=== PATIENT | female | born 1985 | race Caucasian/White ===

== ENCOUNTER 2019-03-24 09:55 | Emergency (ER) | payer OTHER ==
[2019-03-24] MEDS ORDERED: ONDANSETRON 4 MG/2 ML VIAL IVPUSH ONE ×2 (10:02→13:32)
[2019-03-24] MEDS ORDERED: SODIUM CHLORIDE 1,000 ML IV STA (10:02)
[2019-03-24] MEDS ORDERED: ACETAMINOPHEN 1000 MG/100 ML VIAL (NON FORMULARY) IVPB ONE (10:17)
[2019-03-24 10:28] VITALS: BMI 26.2
[2019-03-24] MEDS ORDERED: ONDANSETRON 4 MG/2 ML VIAL ONE ×2 (10:36→13:32)
[2019-03-24] MEDS ORDERED: ACETAMINOPHEN INJECTION 100 ML IVPB ONE (10:36)
[2019-03-24 10:59] LABS: BASO % 0.4 % (0-2.0); EOS % 2.7 % (0-4.5); HEMATOCRIT 37.9 % (32.4-45.2); HEMOGLOBIN 12.9 GM/dL (10.7-15.3); LYMPH % 20.3 % (8-40); MCH 30.9 pg (25.7-33.7); MEAN PLT VOLUME 7.3 fl (7.5-11.1); MONO % 6.2 % (3.8-10.2); NEUT % 70.4 % (42.8-82.8); PLATELET COUNT 494 K/MM3 (134-434); RBC 4.17 M/mm3 (3.60-5.2); RDW 13.9 % (11.6-15.6)
--- NOTE | 2019-03-24 11:10 | PDOC ---
History of Present Illness - General Stated Complaint: VOMITING (8 WKS ) Time Seen by Provider: 03/24/19 10:01 History Source: Patient Exam Limitations: No Limitations - History of Present Illness Initial Comments: 03/24/19 11:41 33-year-old female presents to ED with complaints of nausea vomiting for the past few days now associated frontal headache and poor by mouth intake. Patient denies abdominal pain vaginal discharge or urinary complaints. Patient is currently 8 weeks . Patient has no other complaints at this time Timing/Duration: intermittent Severity: mild Associated Symptoms: reports: headaches, nausea/vomiting Past History - Travel Traveled outside of the country in the last 30 days: No Close contact w/someone who was outside of country & ill: No - Past Medical History Allergies/Adverse Reactions: Allergies Allergy/AdvReac Type Severity Reaction Status Date / Time aspirin Allergy Verified 03/24/19 10:24 diclofenac Allergy Verified 03/24/19 10:24 ibuprofen Allergy Verified 03/24/19 10:24 tramadol Allergy Verified 03/24/19 10:24 Home Medications: Ambulatory Orders Ondansetron HCl [Zofran] 4 mg PO TID PRN #12 tablet 03/24/19 COPD: No Other medical history: denies - Reproductive History Is Patient Now?: Yes (#): 4 Para: 2 Spontaneous : 1 - Suicide/Smoking/Psychosocial Hx Smoking History: Never smoked Information on smoking cessation initiated: No Hx Alcohol Use: No Drug/Substance Use Hx: No Patient Lives Alone: No Lives with/in: spouse/SO Review of Systems - Review of Systems Able to Perform ROS?: No Is the patient limited Slovenian proficient: No Constitutional: Yes: Loss of Appetite HEENTM: No: Symptoms Reported Respiratory: No: Symptoms reported Cardiac (ROS): No: Symptoms Reported ABD/GI: Yes: Nausea, Vomiting : No: Symptoms Reported Musculoskeletal: No: Symptoms Reported Integumentary: No: Symptoms Reported Neurological: Yes: Headache (temporal/frontal throbbing) Hematologic/Lymphatic: No: Symptoms Reported *Physical Exam - Vital Signs Last Vital Signs Temp Pulse Resp BP Pulse Ox 98.8 F 110 H 18 134/86 99 03/24/19 10:19 03/24/19 10:19 03/24/19 10:19 03/24/19 10:19 05/02/19 10:19 - Physical Exam General Appearance: Yes: Nourished, Appropriately Dressed. No: Apparent Distress HEENT: positive: EOMI, GUICHO, TMs Normal. negative: Pale Conjunctivae Neck: positive: Normal Thyroid, Supple Respiratory/Chest: positive: Lungs Clear, Normal Breath Sounds. negative: Respiratory Distress, Accessory Muscle Use Cardiovascular: positive: Regular Rhythm, Tachycardia. negative: Murmur Female Pelvic Exam: negative: vaginal bleeding Gastrointestinal/Abdominal: positive: Soft. negative: Tenderness Integumentary: positive: Normal Color, Warm, Moist Neurologic: positive: Motor Strength 5/5 (ambulatory) ED Treatment Course - LABORATORY CBC & Chemistry Diagram: 03/24/19 10:30 03/24/19 10:02 - Medications Given in the ED: ED Medications Discontinued Medications Generic Name Dose Route Start Last Admin Trade Name Freq PRN Reason Stop Dose Admin Acetaminophen 1,000 mg 03/24/19 10:17 03/24/19 10:44 Ofirmev Injection - IVPB 03/24/19 10:18 1,000 mg ONCE ONE Administration Sodium Chloride 1,000 mls @ 1,000 mls/hr 03/24/19 10:02 03/24/19 10:44 Normal Saline - IV 03/24/19 11:01 1,000 mls/hr ASDIR STA Administration Ondansetron HCl 4 mg 03/24/19 10:02 03/24/19 10:44 Zofran Injection IVPUSH 03/24/19 10:03 4 mg ONCE ONE Administration Medical Decision Making - Medical Decision Making 03/24/19 10:44 Complaint nausea and vomiting for the past 2 days now with frontal headache. Patient few weeks Exam. Patient had no abdominal tenderness or acute findings. Patient actively vomiting clear fluid upon my arrival Plan labs, urine antiemetics and IV fluids: 03/24/19 11:45 Laboratory Tests 03/24/19 03/24/19 03/24/19 10:02 10:25 10:30 WBC 10.0 Hgb 12.9 Hct 37.9 Plt Count 494 H MPV 7.3 L Neutrophils % 70.4 Lymphocytes % 20.3 Sodium 136 Potassium 4.0 Carbon Dioxide 24 Anion Gap 8 BUN 6 L Creatinine 0.5 L Random Glucose 81 Calcium 9.8 Magnesium 2.1 Total Bilirubin 0.3 AST 11 L ALT 20 Urine Ketones 2+ H Urine Blood 3+ H Urine Nitrite Negative Ur Leukocyte Esterase Trace Urine WBC (Auto) 3 Urine RBC (Auto) 64 Patient ordered for second liter of fluid but with D5N S patient states feeling better. Will po challenge shortly. Urine cx sent for evaluation 03/24/19 13:03 Patient requesting to go home. Patient tolerated water and 1 packet of saltine crackers Patient be discharged home with Zofran and told to follow-up with her [employer] INSTRUM[employer] INSPECTOR. 03/24/19 13:50 *DC/Admit/Observation/Transfer Diagnosis at time of Disposition: Hyperemesis gravidarum - Discharge Dispostion Disposition: HOME Condition at time of disposition: Improved - Prescriptions Prescriptions: Ondansetron HCl [Zofran] 4 mg PO TID PRN #12 tablet PRN Reason: Nausea And/Or Vomiting - Referrals - Patient Instructions Printed Discharge Instructions: DI for Hyperemesis Gravidarum Additional Instructions: Use Zofran as needed for nausea. Eat small frequent meals throughout the day. Please follow-up with your [facility] INSTRUM[employer] INSPECTOR and return to emergency room if your symptoms worsen. - Post Discharge Activity
[2019-03-24 11:27] LABS: ALBUMIN 3.9 g/dl (3.4-5.0); ALK PHOS 69 U/L (45-117); ANION GAP 8 MMOL/L (8-16); BILIRUBIN,TOTAL 0.3 mg/dL (0.2-1); BLOOD UREA NITROGEN 6 mg/dL (7-18); CALCIUM 9.8 mg/dL (8.5-10.1); CHLORIDE 105 mmol/L (98-107); CO2 24 mmol/L (21-32); CREATININE 0.5 mg/dL (0.55-1.3); GLUCOSE,RANDOM 81 mg/dL (74-106); LIPASE 113 U/L (73-393); MAGNESIUM 2.1 mg/dL (1.8-2.4); SGOT/AST 11 U/L (15-37); SGPT/ALT 20 U/L (13-61); SODIUM 136 mmol/L (136-145); TOT PROT 8.2 g/dl (6.4-8.2)
[2019-03-24 11:37] LABS: EPI CELLS 10.3 /HPF (0-5/HPF); PH,URINE 5.5 (5.0-8.0); URINE APPEARANCE CLOUDY; URINE BACTERIA 40.3 /hpf (NEGATIVE); URINE BILIRUBIN NEGATIVE (NEGATIVE); URINE CASTS 10 /lpf (0-8); URINE COLOR YELLOW; URINE GLUCOSE (UA) NEGATIVE (NEGATIVE); URINE KETONE 2+ (NEGATIVE); URINE LEUK ESTERASE TRACE (NEGATIVE); URINE NITRITE NEGATIVE (NEGATIVE); URINE PROTEIN NEGATIVE (NEGATIVE); URINE RBC 64 /hpf (0-4); URINE WBC 3 /hpf (0-5)
[2019-03-24] MEDS ORDERED: DEXTROSE 5%-NORMAL SALINE 1,000 ML IV ONE (11:41)
[2019-03-24 13:30] VITALS: BP 108/63; PULSE 72; TEMP 98.7
== END 2019-03-24 14:30 | disposition home or self-care (01) ==
LOC: JER 09:55
PROC: 3E0337Z Introduction of Electrolytic and Water Balance Substance into Peripheral Vein, Percutaneous Approach (ICD-10-PCS; principal; 2019-03-24)
PROC: 3E033GC Introduction of Other Therapeutic Substance into Peripheral Vein, Percutaneous Approach (ICD-10-PCS; 2019-03-24)
PROC: 3E033NZ Introduction of Analgesics, Hypnotics, Sedatives into Peripheral Vein, Percutaneous Approach (ICD-10-PCS; 2019-03-24)
DX: O26.891 Other specified pregnancy related conditions, first trimester (principal); O21.0 Mild hyperemesis gravidarum; R51 Headache; Z3A.08 8 weeks gestation of pregnancy
CPT/HCPCS: 36415; 80053; 81003; 83690; 83735; 85025; 87086; 99284-25; J0131; J7030

== ENCOUNTER 2019-04-22 04:27 | Emergency (ER) | payer OTHER ==
[2019-04-22] MEDS ORDERED: ONDANSETRON 4 MG/2 ML VIAL IVPUSH ONE ×2 (04:37→07:51)
--- NOTE | 2019-04-22 05:11 | PDOC ---
History of Present Illness - General Stated Complaint: 13 WEEKS ,VOMITING Time Seen by Provider: 04/22/19 04:37 - History of Present Illness Initial Comments: 04/22/19 05:08 CHIEF COMPLAINT: vomiting in HISTORY OF PRESENT ILLNESS: 33 yo 13 week F presents to ED with vomiting x 3 days. Patient is , reports that she was taking Reglan but ran out, and when she went to her OB MD Roberts he told her she should stop taking that because she was 12 weeks and he gave her Vitamin B6 instead , which is not helping. She denies any significant abdominal pain. PAST MEDICAL HISTORY: Denies past medical history FAMILY HISTORY: Denies SOCIAL HISTORY: Denies tobacco, alcohol, illicit drug use. SURGICAL HISTORY: Denies ALLERGIES: aspirin, diclofenac, ibuprofen, tramadol REVIEW OF SYSTEMS General/Constitutional: Denies fever or chills. Denies weakness. HEENT: Denies change in vision. Denies ear pain or discharge. Denies sore throat. Cardiovascular: Denies chest pain or shortness of breath. Respiratory: Denies cough, wheezing, or hemoptysis. Gastrointestinal: Persistent vomiting x 3 days. Denies diarrhea or constipation. Denies rectal bleeding. Genitourinary: Denies dysuria, frequency, or change in urination. Musculoskeletal: Denies joint or muscle swelling or pain. Denies neck or back pain. Skin and breasts: Denies rash or easy bruising. Neurologic: Denies headache, vertigo, loss of consciousness, or loss of sensation. PHYSICAL EXAM General Appearance: Well-appearing, appropriately dressed. No apparent distress , no intoxication. HEENT: EOMI, PERRLA, normal ENT inspection, normal voice, TMs normal, pharynx normal. No conjunctival pallor. No photophobia, scleral icterus. Neck: Supple. Trachea midline. No tenderness, rigidity, carotid bruit, stridor , lymphadenopathy, or thyromegaly. Respiratory/Chest: Lungs CTAB. No shortness of breath, chest tenderness, respiratory distress, accessory muscle use. No crackles, rales, rhonchi, stridor , wheezing, dullness Cardiovascular: RRR. S1, S2. No JVD, murmur, bradycardia, tachycardia. Vascular Pulses: Dorsalis-Pedis (R): 2+, Dorsalis-Pedis (L): 2+ Gastrointestinal/Abdominal: Mild lower abdominal tenderness. Normal bowel sounds. Abdomen soft, non-distended. No tenderness or rebound tenderness. No organomegaly, pulsatile mass, guarding, hernia, hepatomegaly, splenomegaly. Lymphatic: No adenopathy, tenderness. Musculoskeletal/Extremities: Normal inspection. FROM of all extremities, normal capillary refill. Pelvis Stable. No CVA tenderness. No tenderness to extremities, pedal edema, swelling, erythema or deformity. Integumentary: Appropriate color, dry, warm. No cyanosis, erythema, jaundice or rash Neurologic: net finisher II-XII intact. Fully oriented, alert. Appropriate mood/affect. Motor strength 5/5. No appreciable EOM palsy, facial droop or sensory deficit. Past History - Past Medical History Allergies/Adverse Reactions: Allergies Allergy/AdvReac Type Severity Reaction Status Date / Time aspirin Allergy Verified 04/22/19 04:56 diclofenac Allergy Verified 04/22/19 04:56 ibuprofen Allergy Verified 04/22/19 04:56 tramadol Allergy Verified 04/22/19 04:56 Home Medications: Ambulatory Orders Cephalexin [Keflex] 500 mg PO BID #20 capsule 04/22/19 Metoclopramide HCl [Reglan] 10 mg PO Q8H #15 tablet 04/22/19 COPD: No - Reproductive History (#): 4 Para: 2 Spontaneous : 1 - Suicide/Smoking/Psychosocial Hx Smoking History: Never smoked Hx Alcohol Use: No Drug/Substance Use Hx: No ED Treatment Course - LABORATORY CBC & Chemistry Diagram: 04/22/19 05:23 04/22/19 05:23 - RADIOLOGY Radiology Studies Ordered: Category Date Time Status TRANSVAGINAL US PREG [US] Stat Ultrasound 04/22/19 04:52 Ordered Medical Decision Making - Medical Decision Making 04/22/19 05:38 33 yo 13 week F presents to ED with vomiting x 3 days. -labs -zofran 04/22/19 06:13 Case discussed in detail with oncoming emergency provider including history, physical exam and ancillary studies. In brief, this patient is being seen in the ED for a chief complaint of: vomiting in I have completed the initial assessment interview note and have ordered the following labs: cbc, cmp, lipase, urine I have reviewed the following results: cbc, cmp, lipase Pending results: US, urine Plan for disposition as follows: pending US, urine Oncoming NPA Wolof has assumed care for the patient and will complete the evaluation and treatment. *DC/Admit/Observation/Transfer Diagnosis at time of Disposition: Hyperemesis gravidarum Urinary tract infection Qualifiers: Urinary tract infection type: acute cystitis Hematuria presence: without hematuria Qualified Code(s): N30.00 - Acute cystitis without hematuria - Discharge Dispostion Disposition: HOME Condition at time of disposition: Improved Decision to Admit order: No - Prescriptions Prescriptions: Cephalexin [Keflex] 500 mg PO BID #20 capsule Metoclopramide HCl [Reglan] 10 mg PO Q8H #15 tablet - Referrals Referrals: Rajiv Choi MD [Staff Physician] - - Patient Instructions Printed Discharge Instructions: Urinary Tract Infection, DI for Hyperemesis Gravidarum Additional Instructions: You were started on reglan for nausea and antibiotics for UTI. Take medications as directed and follow up with your OB on Thursday - Post Discharge Activity
[2019-04-22] MEDS ORDERED: ONDANSETRON 4 MG/2 ML VIAL ONE ×2 (05:12→07:59)
[2019-04-22 05:40] LABS: BASO % 0.3 % (0-2.0); EOS % 2.5 % (0-4.5); LYMPH % 24.5 % (8-40); MCH 31.2 pg (25.7-33.7); MCHC 34.2 g/dl (32.0-36.0); MEAN CELL VOLUME 91.2 fl (80-96); MEAN PLT VOLUME 6.9 fl (7.5-11.1); MONO % 6.7 % (3.8-10.2); PLATELET COUNT 557 K/MM3 (134-434); RBC 3.84 M/mm3 (3.60-5.2); RDW 14.1 % (11.6-15.6); WHITE BLOOD COUNT 10.5 K/mm3 (4.0-10.0)
[2019-04-22 06:07] LABS: ALBUMIN 3.5 g/dl (3.4-5.0); BILIRUBIN,TOTAL 0.3 mg/dL (0.2-1); CALCIUM 9.4 mg/dL (8.5-10.1); CREATININE 0.6 mg/dL (0.55-1.3); POTASSIUM 4.3 mmol/L (3.5-5.1); TOT PROT 7.4 g/dl (6.4-8.2)
[2019-04-22 06:07] LABS: EPI CELLS 25.5 /HPF (0-5/HPF); HYALINE CASTS 23 /lpf (0-8); URINE APPEARANCE TURBID; URINE BACTERIA 404.6 /hpf (NEGATIVE); URINE BILIRUBIN NEGATIVE (NEGATIVE); URINE COLOR YELLOW; URINE GLUCOSE (UA) NEGATIVE (NEGATIVE); URINE KETONE TRACE (NEGATIVE); URINE LEUK ESTERASE 1+ (NEGATIVE); URINE NITRITE NEGATIVE (NEGATIVE); URINE PROTEIN NEGATIVE (NEGATIVE); URINE RBC 34 /hpf (0-4); URINE WBC 15 /hpf (0-5)
[2019-04-22] MEDS ORDERED: SODIUM CHLORIDE 0.9% 500 ML INFUS.BAG IV ONE (06:07)
[2019-04-22] MEDS ORDERED: ACETAMINOPHEN 325 MG TABLET (FP) PO ONE (06:42)
[2019-04-22] MEDS ORDERED: ACETAMINOPHEN 325 MG TABLET (FP) ONE (06:45)
[2019-04-22] MEDS ORDERED: CEPHALEXIN MONOHYDRATE 500 MG CAPSULE (UD) PO ONE (06:48)
[2019-04-22 07:23] VITALS: TEMP 97.5; BMI 27.4
--- NOTE | 2019-04-22 07:35 | PDOC ---
*Physical Exam - Vital Signs Last Vital Signs Temp Pulse Resp BP Pulse Ox 97.5 F L 70 18 121/76 99 04/22/19 07:00 04/22/19 07:00 04/22/19 05:17 04/22/19 07:00 04/22/19 07:00 - Physical Exam General Appearance: Yes: Appropriately Dressed. No: Apparent Distress HEENT: positive: Normal Voice Neck: positive: Supple Respiratory/Chest: negative: Respiratory Distress Gastrointestinal/Abdominal: positive: Soft. negative: Tender Musculoskeletal: negative: CVA Tenderness Integumentary: positive: Dry, Warm Neurologic: positive: Fully Oriented, Alert, Normal Mood/Affect ED Treatment Course - LABORATORY CBC & Chemistry Diagram: 04/22/19 05:23 04/22/19 05:23 - ADDITIONAL ORDERS Additional order review: Laboratory Results 04/22/19 04/22/19 04/22/19 05:45 05:23 05:23 Sodium Potassium Chloride Carbon Dioxide Anion Gap BUN Creatinine Est GFR (CKD-EPI)AfAm Est GFR (CKD-EPI)NonAf Random Glucose Calcium Total Bilirubin AST ALT Alkaline Phosphatase Total Protein Albumin Lipase 88 Urine Color Yellow Urine Appearance Turbid Urine pH 7.0 D Ur Specific [place] 1.023 Urine Protein Negative Urine Glucose (UA) Negative Urine Ketones Trace H Urine Blood 2+ H Urine Nitrite Negative Urine Bilirubin Negative Urine Urobilinogen 1.0 Ur Leukocyte Esterase 1+ H Urine WBC (Auto) 15 Urine RBC (Auto) 34 Urine Casts (Auto) 23 U Epithel Cells (Auto) 25.5 Urine Bacteria (Auto) 404.6 Blood Type Cancelled Antibody Screen Cancelled 04/22/19 05:23 Sodium 139 Potassium 4.3 Chloride 108 H Carbon Dioxide 24 Anion Gap 7 L BUN 8 Creatinine 0.6 Est GFR (CKD-EPI)AfAm 136.87 Est GFR (CKD-EPI)NonAf 118.09 Random Glucose 81 Calcium 9.4 Total Bilirubin 0.3 AST 18 ALT 21 Alkaline Phosphatase 69 Total Protein 7.4 Albumin 3.5 Lipase Urine Color Urine Appearance Urine pH Ur Specific [place] Urine Protein Urine Glucose (UA) Urine Ketones Urine Blood Urine Nitrite Urine Bilirubin Urine Urobilinogen Ur Leukocyte Esterase Urine WBC (Auto) Urine RBC (Auto) Urine Casts (Auto) U Epithel Cells (Auto) Urine Bacteria (Auto) Blood Type Antibody Screen 04/22/19 05:23 RBC 3.84 MCV 91.2 MCHC 34.2 RDW 14.1 MPV 6.9 L Neutrophils % 66.0 Lymphocytes % 24.5 D Monocytes % 6.7 Eosinophils % 2.5 Basophils % 0.3 - Medications Given in the ED: ED Medications Discontinued Medications Generic Name Dose Route Start Last Admin Trade Name Praveen PRN Reason Stop Dose Admin Acetaminophen 650 mg 04/22/19 06:42 04/22/19 07:06 Tylenol - PO 04/22/19 06:43 650 mg ONCE ONE Administration Ondansetron HCl 4 mg 04/22/19 04:37 04/22/19 05:35 Zofran Injection IVPUSH 04/22/19 04:38 4 mg ONCE ONE Administration Sodium Chloride 1,000 ml 04/22/19 06:07 04/22/19 06:09 Normal Saline - IV 04/22/19 06:08 1,000 ml ONCE ONE Administration Medical Decision Making - Medical Decision Making 04/22/19 07:3 Pt signed out to me at 7 AM 33-year-old female currently 13 weeks with confirmed IUP on multiple ultrasounds per patient. Follows up with Dr. Roberts, here with hyperemesis gravidarum. Patient was on reglan but recently had meds discontinued by her OB. No abdominal pain, vaginal bleeding or dysuria at this time. Given zofran here, pending labs and reassessment. 04/22/19 07:38 Labs unremarkable. +UTI, will tx, ucx sent. On reassessment, patient reports feeling significantly better, po trial in progress. 04/22/19 08:46 04/22/19 08:46 Pt unable to noemi po despite multiple doses of zofran. Per discussion with ED attending, will give IV Reglan. Patient states she was taken off Reglan as was told by her QUARTER BACKER that as she was approaching her second trimester, nausea, vomiting should improve. Patient states she was also on B6 initially but that meds was not working for her. 04/22/19 09:46 Pt reports significant improvement in symptoms and was able to noemi po here. Will dc w/ reglan and have pt f/u with her OB Thursday *DC/Admit/Observation/Transfer Diagnosis at time of Disposition: Hyperemesis gravidarum Urinary tract infection Qualifiers: Urinary tract infection type: acute cystitis Hematuria presence: without hematuria Qualified Code(s): N30.00 - Acute cystitis without hematuria - Discharge Dispostion Disposition: HOME Condition at time of disposition: Improved - Prescriptions Prescriptions: Cephalexin [Keflex] 500 mg PO BID #20 capsule Metoclopramide HCl [Reglan] 10 mg PO Q8H #15 tablet - Referrals Referrals: Rajiv Choi MD [Staff Physician] - - Patient Instructions Printed Discharge Instructions: Urinary Tract Infection, DI for Hyperemesis Gravidarum Additional Instructions: You were started on reglan for nausea and antibiotics for UTI. Take medications as directed and follow up with your OB on Thursday - Post Discharge Activity
[2019-04-22] MEDS ORDERED: CEPHALEXIN MONOHYDRATE 250 MG CAPSULE (FP) ONE (07:43)
[2019-04-22] MEDS ORDERED: METOCLOPRAMIDE HCL INJECTION 10 MG/2 ML VIAL ONE (08:48)
[2019-04-22] MEDS ORDERED: SODIUM CHLORIDE 1,000 ML IV STA (08:48)
[2019-04-22] MEDS ORDERED: METOCLOPRAMIDE HCL INJECTION 10 MG/2 ML VIAL IVPB ONE (08:48)
[2019-04-22 10:23] VITALS: BP 121/78; PULSE 74
== END 2019-04-22 10:15 | disposition home or self-care (01) ==
LOC: JER 04:27
PROC: 3E0337Z Introduction of Electrolytic and Water Balance Substance into Peripheral Vein, Percutaneous Approach (ICD-10-PCS; principal; 2019-04-22)
PROC: 3E033GC Introduction of Other Therapeutic Substance into Peripheral Vein, Percutaneous Approach (ICD-10-PCS; 2019-04-22)
DX: O26.891 Other specified pregnancy related conditions, first trimester (principal); Z3A.13 13 weeks gestation of pregnancy; O21.0 Mild hyperemesis gravidarum; N30.00 Acute cystitis without hematuria
CPT/HCPCS: 36415; 80053; 81003; 83690; 85025; 87086; 96374; 96375; 96376; 99283-25; J7030

== ENCOUNTER 2019-05-09 10:23 | Emergency (ER) | payer OTHER ==
[2019-05-09 10:36] VITALS: TEMP 98.2; BMI 24.9
[2019-05-09] MEDS ORDERED: ACETAMINOPHEN 1000 MG/100 ML VIAL (NON FORMULARY) IVPB ONE (11:34)
[2019-05-09] MEDS ORDERED: SODIUM CHLORIDE 1,000 ML IV STA (11:34)
--- NOTE | 2019-05-09 11:43 | PDOC ---
*Physical Exam - Vital Signs Last Vital Signs Temp Pulse Resp BP Pulse Ox 98.2 F 74 18 117/75 100 05/09/19 10:32 05/09/19 10:32 05/09/19 10:32 05/09/19 10:32 05/09/19 10:32 Medical Decision Making - Medical Decision Making 05/09/19 11:43 33y F presents with abdominal pain at approx 16 weeks gestation presents with crampin gb/l lower abd pain without vaginal bleeding, fever/chlls, n/v, dysuria. pt in no acut distress abd soft nontender, no rebound/guarding suspect round ligament pain tylenol, and pmd fu The patient was seen and evaluated in conjunction with KHOA Molina under my direct supervision, ancillary studies were reviewed. I agree with the plan as outlined by KHOA Molina. *DC/Admit/Observation/Transfer - Discharge Dispostion Condition at time of disposition: Stable - Referrals Referrals: Nik Walsh [Primary Care Provider] - - Patient Instructions - Post Discharge Activity
[2019-05-09] MEDS ORDERED: ACETAMINOPHEN INJECTION 100 ML IVPB ONE (11:44)
[2019-05-09 12:21] LABS: BASO % 0.1 % (0-2.0); EOS % 1.3 % (0-4.5); HEMATOCRIT 34.1 % (32.4-45.2); HEMOGLOBIN 11.4 GM/dL (10.7-15.3); LYMPH % 19.5 % (8-40); MCH 30.7 pg (25.7-33.7); MCHC 33.5 g/dl (32.0-36.0); MEAN CELL VOLUME 91.6 fl (80-96); MEAN PLT VOLUME 7.5 fl (7.5-11.1); MONO % 6.2 % (3.8-10.2); NEUT % 72.9 % (42.8-82.8); RBC 3.72 M/mm3 (3.60-5.2); RDW 14.2 % (11.6-15.6); WHITE BLOOD COUNT 11.4 K/mm3 (4.0-10.0)
[2019-05-09 12:30] LABS: PLATELET COUNT 482 K/MM3 (134-434)
--- NOTE | 2019-05-09 12:32 | PDOC ---
History of Present Illness - General Chief Complaint: Pain, Acute Stated Complaint: ABD PAIN Time Seen by Provider: 05/09/19 11:32 History Source: Patient Exam Limitations: Clinical Condition - History of Present Illness Initial Comments: Patient @15wks with no significant past medical history with complaint of cramping lower abdominal pain which has been persistent for a few weeks now and worsened last day. Patient how multiple visit for same symptoms in the past month and reports taking Tylenol without improvement. Denies vaginal bleeding. Reported nausea and vomiting. Denies any other symptoms. Patient saw INTERNAL AUDIT SENIOR MANAGER over week ago for symptoms and was advised to take Tylenol for symptoms but pain has been persistent. Timing/Duration: other (2 days) Past History - Past Medical History Allergies/Adverse Reactions: Allergies Allergy/AdvReac Type Severity Reaction Status Date / Time aspirin Allergy Verified 04/22/19 04:56 diclofenac Allergy Verified 04/22/19 04:56 ibuprofen Allergy Verified 04/22/19 04:56 tramadol Allergy Verified 04/22/19 04:56 Home Medications: Ambulatory Orders NK [No Known Home Medication] 05/09/19 COPD: No - Reproductive History Is Patient Now?: Yes (#): 4 Para: 2 Spontaneous : 1 - Immunization History Immunization Up to Date: Yes - Suicide/Smoking/Psychosocial Hx Smoking History: Never smoked Have you smoked in the past 12 months: No Information on smoking cessation initiated: No Hx Alcohol Use: No Drug/Substance Use Hx: No Review of Systems - Review of Systems Able to Perform ROS?: Yes Is the patient limited Spanish proficient: No Constitutional: No: Fever, Malaise, Weakness HEENTM: No: Symptoms Reported Respiratory: No: Symptoms reported Cardiac (ROS): No: Symptoms Reported ABD/GI: Yes: Symptoms Reported, See HPI, Nausea, Vomiting, Abdominal cramping ( cramping intermittent lower abdominal pain). No: Abdominal Distended, Abd. Pain w/ defecation, Constipated, Diarrhea : Yes: See HPI. No: Symptoms Reported, Burning, Dysuria, Discharge, Frequency , Flank Pain, Hematuria, Incontinence, Pain, Urgency, Other (vaginal bleeding) Musculoskeletal: No: Back Pain All Other Systems: Reviewed and Negative *Physical Exam - Vital Signs Last Vital Signs Temp Pulse Resp BP Pulse Ox 98.2 F 74 18 117/75 100 05/09/19 10:32 05/09/19 10:32 05/09/19 10:32 05/09/19 10:32 05/09/19 10:32 - Physical Exam General Appearance: Yes: Nourished, Appropriately Dressed, Apparent Distress, Mild Distress HEENT: positive: Normal ENT Inspection Neck: positive: Supple Respiratory/Chest: positive: Lungs Clear, Normal Breath Sounds. negative: Respiratory Distress, Accessory Muscle Use Cardiovascular: positive: Regular Rhythm, Regular Rate Female Pelvic Exam: positive: normal adnexa Gastrointestinal/Abdominal: positive: Normal Bowel Sounds, Tender (mild TTP over b/l lower pelvic region), Flat. negative: Organomegaly, Distended, Guarding, Rebound, Mass Musculoskeletal: positive: Normal Inspection. negative: CVA Tenderness Extremity: positive: Normal Capillary Refill Integumentary: positive: Normal Color Neurologic: positive: Fully Oriented, Normal Response ED Treatment Course - LABORATORY CBC & Chemistry Diagram: 05/09/19 12:00 05/09/19 12:00 - Medications Given in the ED: ED Medications Discontinued Medications Generic Name Dose Route Start Last Admin Trade Name Praveen PRN Reason Stop Dose Admin Acetaminophen 1,000 mg 05/09/19 11:34 05/09/19 12:00 Ofirmev Injection - IVPB 05/09/19 11:35 1,000 mg ONCE ONE Administration Medical Decision Making - Medical Decision Making 05/09/19 12:32 Patient @15wks with no significant past medical history with complaint of cramping lower abdominal pain which has been persistent for a few weeks now and worsened last day. Patient how multiple visit for same symptoms in the past month and reports taking Tylenol without improvement. Denies vaginal bleeding. Reported nausea and vomiting. Denies any other symptoms. Patient saw INTERNAL AUDIT SENIOR MANAGER over week ago for symptoms and was advised to take Tylenol for symptoms but pain has been persistent. 05/09/19 13:02 Exam significant for mild b/l lower abdominal tenderness w/o rebound or guarding. Symptoms likely round ligament pain CBC,CMP, labs ordered. Tylenol 1g IV ordered for pain. IV hydration with NS ordered. abdominal U/S ordered. Reassess after labs and imaging 05/09/19 15:25 CBC and chemistry lab /o acute pathology. UA shows no acute findings. Pelvic U/ S shows live IUP of 15.2wks GA with pos FH. Patient feels better with IV tylenol as stable for discharge to take Tylenol prn for pain and warm compress to abdomen prn with OB f/u *DC/Admit/Observation/Transfer Diagnosis at time of Disposition: Abdominal pain during intrauterine , Pain of round ligament during - Discharge Dispostion Disposition: HOME Condition at time of disposition: Stable Decision to Admit order: No - Referrals Referrals: Nik Walsh [Primary Care Provider] - - Patient Instructions Printed Discharge Instructions: Common Discomforts and Bodily Changes During , Managing Symptoms of Additional Instructions: Your labs and ultrasound was normal. Your symptoms is likely from round ligament pain. Take Tylenol as needed for pain. Apply warm compress 2-3 times a day as needed for pain. Follow-up with your OB - Post Discharge Activity Forms/Work/School Notes: Back to Work
[2019-05-09 12:54] LABS: HYALINE CASTS 1 /lpf (0-8); URINE APPEARANCE CLEAR; URINE BACTERIA 93.1 /hpf (NEGATIVE); URINE BILIRUBIN NEGATIVE (NEGATIVE); URINE COLOR YELLOW; URINE GLUCOSE (UA) NEGATIVE (NEGATIVE); URINE KETONE NEGATIVE (NEGATIVE); URINE LEUK ESTERASE NEGATIVE (NEGATIVE); URINE NITRITE NEGATIVE (NEGATIVE); URINE PROTEIN NEGATIVE (NEGATIVE); URINE RBC 5 /hpf (0-4); URINE UROBILINOGEN 0.2 mg/dL (0.2-1.0); URINE WBC 1 /hpf (0-5)
[2019-05-09 13:07] LABS: ALBUMIN 3.5 g/dl (3.4-5.0); BILIRUBIN,TOTAL 0.2 mg/dL (0.2-1); BLOOD UREA NITROGEN 5.8 mg/dL (7-18); CALCIUM 9.5 mg/dL (8.5-10.1); CREATININE 0.5 mg/dL (0.55-1.3); TOT PROT 7.5 g/dl (6.4-8.2)
[2019-05-09 13:15] LABS: HCG,QUALITATIVE URINE Positive
[2019-05-09 15:31] VITALS: BP 112/69; PULSE 71
== END 2019-05-09 15:58 | disposition home or self-care (01) ==
LOC: JER 10:23
PROC: 3E033NZ Introduction of Analgesics, Hypnotics, Sedatives into Peripheral Vein, Percutaneous Approach (ICD-10-PCS; principal; 2019-05-09)
DX: O26.892 Other specified pregnancy related conditions, second trimester (principal); R10.30 Lower abdominal pain, unspecified; Z3A.15 15 weeks gestation of pregnancy
CPT/HCPCS: 36415; 76815-TC; 80053; 81003; 84702; 84703; 85025; 87086; 96374; 99283-25; J0131; J7030

== ENCOUNTER 2019-10-12 16:45 | Inpatient (IN) | payer OTHER ==
--- NOTE | 2019-10-12 18:12 | HP ---
Past Medical History - Primary Care Physician PCP:: Rajiv Choi - Admission Chief Complaint: Severe abdominal pain with regular contractions History Source: Patient Limitations to Obtaining History: No Limitations - Past Medical History SURFACE BOSS: No: Alzheimer's, CVA, Dementia, Migraine, Multiple Sclerosis, Peripheral Neuropathy, Parkinson's, Seizure, Syncope, TIA, Vertigo, Other Cardiovascular: No: AFIB, Aneurysm, Aortic Insufficiency, Aortic Stenosis, CAD, CHF, Deep Vein Thrombosis, HTN, Hyperlipdemia, CA, Mitral Insufficiency, Mitral Stenosis, Murmur, Pulmonary Hypertension, Other Pulmonary: No: Asthma, Bronchitis, Cancer, COPD, O2 Dependent, Pneumonia, Previously Intubated, Pulmonary Embolus, Pulmonary Fibrosis, Sleep Apnea, Other Gastrointestinal: No: Ascites, Cancer, Constipation, Crohn's Disease, Diverticulitis, Diverticulosis, Esophageal Varices, Gastritis, GERD, GI Bleed, Hemorrhoids, Hiatal Hernia, Inflamatory Bowel Disease, Irritable Bowel Disease, Pancreatitis, Peptic Ulcer Disease, Ulcerative Colitis, Other Hepatobiliary: No: Cirrhosis, Cholelithiasis, Cholecystitis, Choledocholithiasis , Hepatitis A, Hepatitis B, Hepatitis C, Other Renal/: No: Renal Failure, Renal Inusuff, BPH, Cancer, Hematuria, Hemodialysis , Neurogenic Bladder, Renal Calculi, UTI, Other Reproductive: No: Ectopic , Endometriosis, Fibroids, PID, Polycystic Ovary Syndrome, Postmenopausal, Other Heme/Onc: No: Anemia, B12 Deficiency, Bleeding Disorder, Cancer, Current Chemotherapy, Current Radiation Therapy, Hemochromatosis, Hypercoaguable State, Myeloproliferative Synd, Sickle Cell Disease, Sickle Cell Trait, Thrombocytopenia, Other Infectious Disease: No: AIDS, C-Diff, Herpes Zoster, HIV, MRSA, STD's, Tuberculosis, VREF, Other Psych: No: Addictions, Anxiety, Bipolar, Depression, Panic, Psychosis, Schizophrenia, Other Musculoskeletal: No: Bursitis, Chronic low back pain, Hemiparesis, Hemiplegia, Osteoarthritis, Paraplegia, Other Rheumatology: No: Fibromyalgia, Gout, Lupus, Rheumatoid Arthritis, Sarcoidosis, Vasculitis, Other ENT: No: Allergic Rhinitis, Sinusitis, Other Endocrine: No: Garza's Disease, Colton's Disease, Diabetes Insipidus, Diabetes Mellitus, Hyperparathyroidism, Hyperthyroidism, Hypothyroidism, Osteopenia, SIADH, Other Dermatology: No: Basal Cell, Cellulitis, Eczema, Melanoma, Psoriasis, Squamous Cell, Other - Past Surgical History Past Surgical History: Yes: (x2 in [place] Hernia Repair Hx Myomectomy: No Hx Transabdominal Cerclage: No - Smoking History Smoking history: Never smoked Have you smoked in the past 12 months: No - Alcohol/Substance Use Hx Alcohol Use: No History of Substance Use: reports: None Home Medications - Allergies Allergies/Adverse Reactions: Allergies Allergy/AdvReac Type Severity Reaction Status Date / Time aspirin Allergy Severe Swelling Verified 10/03/19 17:41 diclofenac Allergy Severe Swelling Verified 10/03/19 17:41 ibuprofen Allergy Severe Swelling Verified 10/03/19 17:41 tramadol Allergy Severe Swelling Verified 10/03/19 17:41 - Home Medications Home Medications: Ambulatory Orders Ferrous Sulfate [Iron] 1 tab PO DAILY 09/30/19 Formula Tablet 1 tab PO DAILY 09/30/19 Family Medical History Family History: Unremarkable Review of Systems Findings/Remarks: Svere painful regular contractions - Review of Systems Constitutional: reports: No Symptoms Eyes: reports: No Symptoms HENT: reports: No Symptoms Neck: reports: No Symptoms Cardiovascular: reports: No Symptoms Respiratory: reports: No Symptoms Gastrointestinal: reports: No Symptoms Genitourinary: reports: No Symptoms Breasts: reports: No Symptoms Reported Musculoskeletal: reports: No Symptoms Integumentary: reports: No Symptoms Neurological: reports: No Symptoms Endocrine: reports: No Symptoms Hematology/Lymphatic: reports: No Symptoms Psychiatric: reports: No Symptoms Physical Exam - Maternity Vital Signs: As reported by nursing Constitutional: Yes: Well Nourished Eyes: Yes: WNL HENT: Yes: Atraumatic Neck: Yes: Supple Cardiovascular: Yes: Regular Rate and Rhythm Breast(s): Yes: Other (deferred) - Abdominal Exam/OB Number of Fetuses: Single Presentation: Vertex Contractions: Yes Regularity: Regular Intensity: Strong Monitor Mode: External Heart Rate (range): 150 Category: I Accelerations: Uniform Decelerations: None - Vaginal Exam/OB Vaginal Bleediing: No Speculum Exam: No Dilatation (cm): 0.5 Effacement (%): 60 Amniotic Membrane Status: Intact Presentation: Vertex/Position Station: -3 - Physical Exam Musculoskeletal: Yes: WNL Extremities: Yes: WNL Edema: Yes Edema: LLE: Trace, RLE: Trace Integumentary: Yes: WNL Deep Tendon Reflex Grade: Normal +2 ...Motor Strength: WNL Psychiatric: Yes: Alert, Oriented - Labs Lab Results: 36 weeks labs reviewed Imaging - Results Ultrasound: Report Reviewed Assessment/Plan 33 y/o @ 37.0wks, prior c/S x 2 and scheduled repeat, presenting with regular painful contraction in distress secondary to pain, no evidence of active labor, FHt is reassuring, Patient desires sterilization and expressed 100 % certainty, BTL consent previously sign and she desires bilateral salpingectomy as mode of sterilization. -Admit -proceed with urgent RCD and BTL -nursing and anesthesia service aware of acuity of case.
[2019-10-12] MEDS ORDERED: CITRIC ACID/SODIUM CITRATE 30 ML UNIT-DOSE CUP PO ONE (18:13)
[2019-10-12] MEDS ORDERED: ceFAZolin 2 GRAM PREMIX BAG IVPB ONE (18:15)
[2019-10-12] MEDS ORDERED: ELECTROLYTE-148 SOLN 1,000 ML IV SCH (18:15)
[2019-10-12 18:32] VITALS: BMI 31.0
[2019-10-12] MEDS ORDERED: OXYTOCIN 20 UNITS in 0.9% NS 20 UNIT/1,000 ML INFUS.BAG IV ONE ×2 (18:43→23:59)
[2019-10-12] MEDS ORDERED: ePHEDrine SULFATE 50 MG/1 ML AMPULE ONE (18:48)
[2019-10-12] MEDS ORDERED: morphine SULFATE/PF 0.5 MG/ML (2cc Syringe - QUVA) ONE (18:48)
[2019-10-12 18:58] LABS: BASO % 0.2 % (0-2.0); EOS % 1.9 % (0-4.5); HEMATOCRIT 34.5 % (32.4-45.2); HEMOGLOBIN 11.7 GM/dL (10.7-15.3); LYMPH % 23.1 % (8-40); MCH 31.9 pg (25.7-33.7); MEAN CELL VOLUME 93.9 fl (80-96); MEAN PLT VOLUME 7.9 fl (7.5-11.1); MONO % 7.1 % (3.8-10.2); NEUT % 67.7 % (42.8-82.8); PLATELET COUNT 507 K/MM3 (134-434); RBC 3.67 M/mm3 (3.60-5.2); RDW 14.6 % (11.6-15.6); WHITE BLOOD COUNT 10.9 K/mm3 (4.0-10.0)
[2019-10-12 19:21] LABS: BLOOD UREA NITROGEN 4.8 mg/dL (7-18); CALCIUM 8.8 mg/dL (8.5-10.1); CREATININE 0.6 mg/dL (0.55-1.3)
[2019-10-12 19:23] LABS: INR 0.94 (0.83-1.09); PROTHROMBIN TIME (PATIENT) 11.1 SEC (9.7-13.0)
[2019-10-12 19:26] LABS: ACTIVATED PTT 28.1 SECONDS (25.2-36.5)
[2019-10-12] MEDS ORDERED: ONDANSETRON 4 MG/2 ML VIAL IVPUSH PRN (20:06)
--- NOTE | 2019-10-12 20:09 | OP ---
Operative Note - Note: Operative Date: 10/12/19 (82069) Pre-Operative Diagnosis: 33 y/o P2 @ 37.0wks, prior c/S x 2, severe regular contraction, no evidence of labor. Operation: urgent RCD and Bilateral salpingectomy Findings: see dictation Implants: none Post-Operative Diagnosis: Same as Pre-op Surgeon: Rajiv Choi Psychopaedic Nurse: Andrea Damon Anesthesia: Spinal Specimens Removed: fallopian tubes Estimated Blood Loss (mls): 700 Operative Report Dictated: Yes
[2019-10-12] MEDS ORDERED: SENNOSIDES/DOCUSATE COMBO (SENNA PLUS) TABLET (UD) PO PRN (20:16)
[2019-10-12] MEDS ORDERED: OXYTOCIN 20 UNITS in 0.9% NS 20 UNIT/1,000 ML INFUS.BAG IV SCH (20:30)
[2019-10-12] MEDS ORDERED: ACETAMINOPHEN 325 MG TABLET (FP) ONE ×2 (22:18→22:19)
[2019-10-12] MEDS ORDERED: TAPENTADOL HYDROCHLORIDE 50 MG TABLET PO ONE (22:37)
[2019-10-12] MEDS: TAPENTADOL HYDROCHLORIDE 50 MG TABLET PO PRN (22:40)
[2019-10-12] MEDS: ACETAMINOPHEN 325 MG TABLET (FP) PO PRN (23:00)
[2019-10-13] MEDS: TAPENTADOL HYDROCHLORIDE 50 MG TABLET PO PRN ×3 (05:20→21:28)
[2019-10-13] MEDS ORDERED: TAPENTADOL HYDROCHLORIDE 50 MG TABLET PO ONE ×3 (05:20→20:43)
[2019-10-13] MEDS ORDERED: OXYTOCIN 20 UNITS in 0.9% NS 20 UNIT/1,000 ML INFUS.BAG IV ONE (06:48)
--- NOTE | 2019-10-13 09:04 | PN ---
Post Progress Note - Subjective Subjective: Patient feeling well, breast feeding, baby is doing well, ford in place, lochia decreased Post Day: 1 Type of Delivery: Repeat C/S Vital Signs: Vital Signs Temperature 98.1 F 10/13/19 06:00 Pulse Rate 90 10/13/19 06:00 Respiratory Rate 18 10/13/19 07:47 Blood Pressure 130/79 10/13/19 06:00 O2 Sat by Pulse Oximetry (%) 99 10/12/19 21:45 Breast Exam: Yes: Other (deferred) Uterus: Yes: Fundus Firm Incision: Yes: Dressing dry and intact (removed) Abdomen/GI: Yes: Abdomen soft Lochia, amount: Moderate Extremities: Yes: Calves non-tender Activity: Ambulating - Labs Labs: CBC WBC 10.9 K/mm3 (4.0-10.0) H 10/12/19 18:15 RBC 3.67 M/mm3 (3.60-5.2) 10/12/19 18:15 Hgb 11.7 GM/dL (10.7-15.3) 10/12/19 18:15 Hct 34.5 % (32.4-45.2) 10/12/19 18:15 MCV 93.9 fl (80-96) 10/12/19 18:15 MCH 31.9 pg (25.7-33.7) 10/12/19 18:15 MCHC 34.0 g/dl (32.0-36.0) 10/12/19 18:15 RDW 14.6 % (11.6-15.6) 10/12/19 18:15 Plt Count 507 K/MM3 (134-434) H 10/12/19 18:15 MPV 7.9 fl (7.5-11.1) 10/12/19 18:15 Absolute Neuts (auto) 7.4 K/mm3 (1.5-8.0) 10/12/19 18:15 Neutrophils % 67.7 % (42.8-82.8) 10/12/19 18:15 Lymphocytes % 23.1 % (8-40) 10/12/19 18:15 Monocytes % 7.1 % (3.8-10.2) 10/12/19 18:15 Eosinophils % 1.9 % (0-4.5) 10/12/19 18:15 Basophils % 0.2 % (0-2.0) 10/12/19 18:15 Nucleated RBC % 0 % (0-0) 10/12/19 18:15 Assessment/Plan POD # 1 in stable condition, desiring infant's circumcision -Continue post-op care -D/C ford -encourage ambulation
[2019-10-13] MEDS ORDERED: ACETAMINOPHEN 325 MG TABLET (FP) ONE (09:12)
[2019-10-13] MEDS: ACETAMINOPHEN 325 MG TABLET (FP) PO PRN ×2 (09:15→23:47)
--- NOTE | 2019-10-13 10:01 | PN ---
Progress Note (short form) - Note Progress Note: Anesthesia Post Op Note Pt s/p spinal w/ duramorph for c/section awake alert denies h/a,n/v mild puritis well treated good pain control ford in situ VSS no apparent anesthesia complications Marie Graff.
[2019-10-13 11:52] LABS: BASO % 0.2 % (0-2.0); HEMATOCRIT 30.8 % (32.4-45.2); HEMOGLOBIN 10.3 GM/dL (10.7-15.3); MCH 31.1 pg (25.7-33.7); MCHC 33.6 g/dl (32.0-36.0); MEAN CELL VOLUME 92.7 fl (80-96); MEAN PLT VOLUME 7.2 fl (7.5-11.1); MONO % 9.1 % (3.8-10.2); NEUT % 73.7 % (42.8-82.8); PLATELET COUNT 436 K/MM3 (134-434); RBC 3.32 M/mm3 (3.60-5.2); RDW 14.5 % (11.6-15.6); WHITE BLOOD COUNT 11.9 K/mm3 (4.0-10.0)
--- NOTE | 2019-10-13 12:05 | OP ---
DATE OF OPERATION: 10/12/2019 DICTATING ATTENDING PHYSICIAN: Marci Aldrich MD PREOPERATIVE DIAGNOSIS: A 33-year-old, 3, para 2-0-0-2 at 37 weeks of gestation, severe regular contractions, no evidence of active labor, presenting with severe, worsening pain; patient well known to Labor and Delivery with multiple visits for rule out labor; desiring sterilization via bilateral salpingectomy. POSTOPERATIVE DIAGNOSIS: A 33-year-old, 3, para 2-0-0-2 at 37 weeks of gestation, severe regular contractions, no evidence of active labor, presenting with severe, worsening pain; patient well known to Labor and Delivery with multiple visits for rule out labor; desiring sterilization via bilateral salpingectomy. PROCEDURE: Urgent repeat section and bilateral salpingectomy. SURGEON: Marci Aldrich MD INTERPRETER TRANSLATOR: KHOA Wang ANESTHESIA: Spinal. ESTIMATED BLOOD LOSS: 700 mL. INTRAVENOUS FLUIDS: Per Anesthesia. URINE: Clear. COMPLICATIONS: None. FINDINGS: The abdominal anatomy revealed a vertical infraumbilical incision consistent with prior section. Fascia was not adherent to the underlying rectus muscles. Rectus muscles were slightly fused to each other superiorly. No visceral peritoneal adhesions on entry. Thin bladder adhesions to the lower uterine segment. The lower uterine segment was thin at the vesicouterine junction. Infant in cephalic presentation. Lower uterine segment was effaced. Clear amniotic fluid. Loose nuchal cord x2. Infant MICHELLE presentation. Uterus with normal anatomy. Bilateral tubes examined, and the right fallopian tube was consistent with normal anatomy. The left fallopian tube was short and adherent to the fundus only the fimbriated end visible. Bladder dome and rectum muscle interface noted to dry. DESCRIPTION OF PROCEDURE: Patient was taken to the operating room where anesthesia was found to be adequate. She was then prepped and draped in the normal sterile fashion. Banuelos catheter was placed atraumatically. Appropriate timeout took place. Pfannenstiel skin incision was made with a scalpel and carried to the underlying fascia with the Bovie, Fascia was incised in the midline. Incision extended laterally with sharp dissection. The underlying rectus muscles were dissected out sharply and bluntly. Rectus muscles were in the midline bluntly, and the peritoneum was entered. Incision was extended laterally with blunt dissection. Bladder blade was placed and findings as previously mentioned. Lower uterine segment transverse incision was made with the scalpel approximately 5 cm above the vesicouterine junction. Clear amniotic fluid was noted. was delivered through the surgical incision with mild fundal pressure. Loose nuchal cord was removed. was handed off to the NICU staff after delayed cord clamping. The placenta was delivered manually and intact. The uterus was exteriorized through the surgical incision, and the intrauterine cavity was cleared of all clots and debris. Lower uterine segment incision was reapproximated with 1-0 Polysorb running locked sutures. Excellent reapproximation and hemostasis noted. Attention then was redirected to the left fallopian tube which was noted to be short as previously mentioned. Only the fimbriated end was visible, and it was cauterized and transected with the LigaSure instrument. Excellent hemostasis from the surgical stump. Attention then was redirected to the contralateral fallopian tube which was normal in appearance, and the mesosalpinx immediately parallel to the tube was transected with the LigaSure instrument and cauterized. The entire tube was excised. Specimen sent to Pathology. Surgical stump noted to be dry. The uterus was internalized to the pelvic cavity, and gutters were cleared of all clots and debris. Secondary inspection revealed excellent hemostasis again. Bladder dome and rectus muscle interface was noted to be dry. Fascial incision was reapproximated with 0 Polysorb running, non-locked sutures. Excellent structural reapproximation achieved and confirmed by the digital palpation by the surgeon. Subcutaneous tissues were copiously irrigated, and bleeders neutralized with Bovie cautery. Skin incision was reapproximated with 3-0 Vicryl suture. Excellent reapproximation achieved. Instrument count was reported as correct x2 by the staff. MARCI ALDRICH MD [id number] MTDD
[2019-10-13] MEDS: SIMETHICONE 80 MG TAB.CHEW (FP) PO PRN (21:28)
[2019-10-14] MEDS ORDERED: TAPENTADOL HYDROCHLORIDE 50 MG TABLET PO ONE ×3 (05:37→21:03)
[2019-10-14] MEDS: TAPENTADOL HYDROCHLORIDE 50 MG TABLET PO PRN ×3 (05:40→21:09)
[2019-10-14] MEDS: SIMETHICONE 80 MG TAB.CHEW (FP) PO PRN ×2 (05:45→14:10)
--- NOTE | 2019-10-14 07:17 | PN ---
Progress Note (short form) - Note Progress Note: pod 2 s/p c/s , ambulating, passing gas CBC, BMP 10/13/19 11:35 10/12/19 18:15 Last Vital Signs Temp Pulse Resp BP Pulse Ox 99.8 F H 103 H 18 132/83 99 10/13/19 22:00 10/13/19 22:00 10/13/19 22:00 10/13/19 22:00 10/12/19 21:45 abdomen soft, no distension, no cva incison dry, clean no calf tenderness plan ambulate , cbc in am pain management
[2019-10-14] MEDS ORDERED: WITCH HAZEL 50% (TUCKS) 40 PAD/JAR PAD TP PRN (13:44)
[2019-10-14] MEDS ORDERED: PHENYLEPHRINE HCL/COCOA BUTTER SUPPOSITORY RC PRN (13:46)
[2019-10-14] MEDS: ACETAMINOPHEN 325 MG TABLET (FP) PO PRN ×2 (14:10→23:13)
[2019-10-14 22:15] VITALS: BP 131/77
[2019-10-15] MEDS: ACETAMINOPHEN 325 MG TABLET (FP) PO PRN ×2 (04:05→08:08)
--- NOTE | 2019-10-15 07:34 | DS ---
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 Vital Signs: Vital Signs Temperature 98.3 F 10/14/19 22:00 Pulse Rate 95 H 10/14/19 22:00 Respiratory Rate 18 10/14/19 22:00 Blood Pressure 131/77 10/14/19 22:00 O2 Sat by Pulse Oximetry (%) 99 10/12/19 21:45 Constitutional: Yes: Well Nourished Eyes: Yes: Conjunctiva Clear HENT: Yes: Atraumatic Neck: Yes: Supple Cardiovascular: Yes: Regular Rate and Rhythm Respiratory: Yes: Regular Gastrointestinal: Yes: Normal Bowel Sounds Pelvis: Yes: WNL External Genitalia: Yes: Normal Vaginal Exam: Yes: Normal Cervix: Yes: Normal Uterus: Yes: Firm Breast(s): Yes: WNL Musculoskeletal: Yes: WNL Extremities: No: Calf Tenderness Wound/Incision: Yes: Well Approximated Neurological: Yes: Alert, Oriented ...Motor Strength: WNL Psychiatric: Yes: Alert, Oriented Labs: CBC, BMP 10/13/19 11:35 10/12/19 18:15 Delivery - Delivery Type of Anesthesia: Spinal Episiotomy/Laceration: None EBL (cc): 700 Delivery, Single - Stages of Labor Date of Delivery: 10/12/19 Time of Delivery: 19:15 Time Placenta Delivered: 19:16 - Condition of Director Targeted Marketing/Animal Care Taker Present: Yes Name: Faby Boston Gender: Male Weight: 6 lb 13 oz Position: Left, OA Total Hours ROM (Hrs/Mins): 5M - 1 Minute Total Score: 9 5 Minutes Total Score: 9 - [place] Feeding Plan Initial Plan: Exclusive throughout hospitalization Discharge Summary Problems reviewed: Yes Reason For Visit: IN LABOR EMERGENCY C SECTION Procedures: Principal: delivery Hospital Course: Routine post op care Health Concerns: Thromboembolic event Plan of Treatment: Ambulation Analgesia as needed F/U in clinic in 2 weeks Goals: Resume normal activities in 6 weeks Condition: Stable - Instructions Diet, Activity, Other Instructions: return to regular diet as tolerated. Follow up within a week at health center. call MD with any questions or concerns Referrals: Marielle Flower MD [Staff Physician] - Disposition: HOME - Home Medications Comprehensive Discharge Medication List: Ambulatory Orders Ferrous Sulfate [Iron] 1 tab PO DAILY 09/30/19 Formula Tablet 1 tab PO DAILY 09/30/19 Acetaminophen [Tylenol] 650 mg PO Q6H PRN #30 capsule MDD 5 10/13/19 Tapentadol HCl [Nucynta] 50 mg PO Q6H PRN #14 tablet MDD 5 10/13/19 Tapentadol HCl [Nucynta] 50 mg PO Q6H PRN #14 tablet MDD 4 10/14/19
[2019-10-15] MEDS: SIMETHICONE 80 MG TAB.CHEW (FP) PO PRN (08:12)
[2019-10-15 08:53] VITALS: PULSE 78; TEMP 98.2
[2019-10-15 10:16] LABS: BASO % 0.2 % (0-2.0); EOS % 2.7 % (0-4.5); HEMOGLOBIN 11.1 GM/dL (10.7-15.3); LYMPH % 23.4 % (8-40); MCH 31.4 pg (25.7-33.7); MCHC 33.6 g/dl (32.0-36.0); MEAN CELL VOLUME 93.3 fl (80-96); MEAN PLT VOLUME 7.6 fl (7.5-11.1); MONO % 7.1 % (3.8-10.2); NEUT % 66.6 % (42.8-82.8); PLATELET COUNT 526 K/MM3 (134-434); RBC 3.54 M/mm3 (3.60-5.2); WHITE BLOOD COUNT 12.9 K/mm3 (4.0-10.0)
--- NOTE | 2019-10-25 13:47 | PATH ---
Surgical Pathology Report Patient Name: ANTONETTE CERON [facility]. Rec. 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 PLACENTA, SECTION: 545 G THIRD TRIMESTER PLACENTA WITH TRIVASCULAR UMBILICAL CORD, UNREMARKABLE PLACENTAL MEMBRANES, AND FOCAL INTRAPARENCHYMAL HEMORRHAGE (~5% OF PLACENTAL SURFACE). B. FALLOPIAN TUBE, PORTION, RIGHT, SALPINGECTOMY: FALLOPIAN TUBE WITH PARATUBAL AND WALTHARD NEST CYSTS (INCLUDING FIMBRIATED END AND FULL LUMINAL PORTION). C. FALLOPIAN TUBE, PORTION, LEFT, SALPINGECTOMY: FALLOPIAN TUBE WITH PARATUBAL AND WALTHARD NEST CYSTS (INCLUDING FIMBRIATED END AND FULL LUMINAL PORTION). Electronically Signed Shira Silva M.D. Gross Description A. The specimen is received fresh labeled placenta and is a 545 gram, 17.0 x 14.5 x 4.5 cm. placenta with attached membranes and umbilical cord. The attached membranes are gonzalez, translucent with focal opacities and insert marginally. The umbilical cord measures 35 cm. in length and averages 1.0 cm. in diameter. The cord inserts eccentrically, 3.5 cm. to the nearest margin. No true knots or strictures are identified. Cut surface of the umbilical cord reveals 3 vessels. The surface is anglin-blue with minimal fibrin deposition and appropriate caliber vessels. The maternal surface is red-brown with focal defects. Sectioning reveals a 1.0 cm in greatest dimension hemorrhagic intraparenchymal lesion. The remaining placental parenchyma is red-brown and spongy. Handle And Vent Machine Operator sections are submitted in three cassettes as follows: 1-membrane roll and umbilical cord; 2-lesion; 1-[id number] section of placenta. B. Received in formalin labeled "right fallopian tube," is a 7 cm in length fimbriated fallopian tube. The outer surface is fry-brown and smooth with a paratubal cyst attached to the fimbria. Sectioning reveals an unremarkable lumen. Handle And Vent Machine Operator sections are submitted in 2 cassettes as follows: 1-fimbria with attached paratubal cyst; 2-cross sections of fallopian tube. C. Received in formalin labeled "left fallopian tube," is a 1 cm in length fimbriated portion of fallopian tube. The outer surface is anglin purple and smooth. Sectioning reveals an unremarkable lumen with an attached paratubal cyst. The specimen is entirely submitted in 2 cassettes as follows: 1-fimbria; 2-cross sections of fallopian tube. 10/21/2019 [facility]10/21/2019
== END 2019-10-15 12:15 | disposition home or self-care (01) | DRG 540 ==
LOC: JLDR 16:45 → J3W 10-13 13:30
PROVIDERS: ADMIT Student in an Organized Health Care Education/Training Program; ATTEND Student in an Organized Health Care Education/Training Program
PROC: 10D00Z1 Extraction of Products of Conception, Low, Open Approach (ICD-10-PCS; principal; 2019-10-12)
PROC: 0UB70ZZ Excision of Bilateral Fallopian Tubes, Open Approach (ICD-10-PCS; 2019-10-12)
DX: O34.219 Maternal care for unspecified type scar from previous cesarean delivery (principal); O69.81X0 Labor and delivery complicated by cord around neck, without compression, not applicable or unspecified; Z3A.37 37 weeks gestation of pregnancy; Z37.0 Single live birth; Z30.2 Encounter for sterilization
CPT/HCPCS: 36415; 80048; 85025; 85610; 85730; 86593; 86850; 86900; 86901; 88302-TC; 88307-TC